=== PATIENT | male | born 1960 | race Caucasian/White ===

== ENCOUNTER → 2022-02-19 09:32 | Outpatient (CLI) | payer BC, SELFPAY | PROVIDERS: Visit Provider Nurse Practitioner Critical Care Medicine | DX: J02.9 Acute pharyngitis, unspecified (principal) | CPT/HCPCS: 87070; 87147 ==

== ENCOUNTER 2023-07-13 18:50 | Emergency (ER) | payer BC, SELFPAY ==
[2023-07-13] VITALS (21 sets, daily range): BP systolic 135–197; BP diastolic 68–129; PULSE 69–84; RESP 12–26; TEMP 35.9; O2SAT 95–99; BMI 24.7
--- NOTE | 2023-07-13 18:57 | DI.RAD.S_ITS ---
PROCEDURE: XR CHEST 1V INDICATIONS: chest pain TECHNIQUE: One view of the chest was acquired. COMPARISON: None. FINDINGS: Surgical changes and devices: None. Lungs and pleura: Lungs are clear. No pleural effusions or pneumothorax. Mediastinum: Mediastinal contours appear normal. Heart size is normal. Bones and chest wall: No suspicious bony lesions. Overlying soft tissues appear unremarkable. IMPRESSION: No acute cardiopulmonary process. Dictated by: Brice Nettles M.D. on 07/13/2023 at 19:19 Approved by: Brice Nettles M.D. on 07/13/2023 at 19:19
[2023-07-13 19:26] LABS: Add Manual Diff / Slide Review NO; Basophils Absolute Auto 100 /uL (0-100); Basophils Percent Auto 1.2 % (0-2); Eosinophils Absolute Auto 200 /uL (0-450); Eosinophils Percent Auto 3.5 % (2-4); Hematocrit 44.6 % (41-53); Hemoglobin 15.2 g/dL (13.5-17.5); Lymphocytes Absolute Auto 2100 /uL (1100-4500); Lymphocytes Percent Auto 33.2 % (25-40); Mean Corpuscular HGB Conc 34.1 % (30-36); Mean Corpuscular Volume 88.1 fL (80-100); Monocytes Absolute Auto 700 /uL (0-900); Monocytes Percent Auto 10.6 % (3-14); Neutrophils Absolute Auto 3300 /uL (1500-7000); Neutrophils Percent Auto 51.5 % (50-75); Platelet Count 254 X10^3/uL (150-400); Red Blood Cell Count 5.07 X10^6/uL (4.5-5.9); Red Cell Distribution Width 13.7 % (11.6-14.8); White Blood Cell Count 6.3 X10^3/uL (4.5-11.0)
[2023-07-13 19:46] LABS: Prothrombin Time 11.5 SECONDS (10.1-12.7)
[2023-07-13 19:49] LABS: PTT Partial Thromboplastin Tim 28 SECONDS (26-36)
[2023-07-13 19:51] LABS: Alanine Aminotransferase 18 IU/L (<50); Albumin 4.5 g/dL (3.5-5.0); Albumin Globulin Ratio 1.5 (1.0-2.8); Alkaline Phosphatase 67 U/L (38-126); Aspartate Aminotransferase 28 IU/L (17-59); BUN Creatinine Ratio 15.2 (6-22); Bilirubin Total 0.6 mg/dL (0.2-1.3); Blood Urea Nitrogen 14 mg/dL (9-20); Carbon Dioxide 26 mmol/L (22-32); Chloride 105 mmol/L (98-107); Creatine Kinase 85 U/L (55-170); Estimated Glomerular Filt Rate > 60 mL/min (>60); Globulin 3.1 g/dL (1.7-4.1); Glucose 111 mg/dL (80-110); HEMOLYSIS 35 (0-50); Lipase 176 U/L (23-300); Magnesium 1.9 mg/dL (1.6-2.3); Potassium 4.3 mmol/L (3.4-5.1); Sodium 139 mmol/L (137-145); Total Protein 7.6 g/dL (6.3-8.2)
[2023-07-13 20:02] LABS: Troponin I 0.014 ng/mL (0.01-0.034)
--- NOTE | 2023-07-13 20:48 | ED_ITS ---
HPI - Chest Pain General Chief Complaint: Chest Pain Stated Complaint: Thinks heart attack Time Seen by Provider: 07/13/23 19:05 Source: patient Mode of arrival: Family Vehicle Limitations: no limitations History of Present Illness HPI narrative: Patient is a 62-year-old male. A known history of coronary artery disease. He had a heart attack in 2016. He states that it was a ?LAD lesion? he had a stent placed. Has not had any issues since that time. He takes propranolol for headaches. He is on a statin and also prasugrel. At approximately 0630 this evening he stated that he had a fairly sudden onset of chest discomfort. It was both sides of his chest. He did have some tightness in his neck. No arm discomfort. No shortness of breath. Lasted approximately 1 hour and then resolved. He has been asymptomatic since that time. He states this does feel different than his prior heart attack. He is no lower extremity swelling. Has not tried anything for his symptoms prior to arrival. Related Data Home Medications Medication Instructions Recorded Confirmed pantoprazole 40 mg tablet,delayed 40 mg PO QAM 07/14/23 07/14/23 release prasugrel 10 mg tablet 10 mg PO DAILY 07/14/23 07/14/23 propranolol 60 mg capsule,24 60 mg PO DAILY 07/14/23 07/14/23 hr,extended release rosuvastatin 10 mg tablet 10 mg PO DAILY 07/14/23 07/14/23 Allergies Allergy/AdvReac Type Severity Reaction Status Date / Time Penicillins AdvReac Verified 07/13/23 18:57 Review of Systems Constitutional Constitutional: Reports system reviewed and no additional complaints, except as documented Cardiovascular Cardiovascular: Reports system reviewed and no additional complaints, except as documented Respiratory Respiratory: Reports system reviewed and no additional complaints, except as documented Gastrointestinal Gastrointestinal: Reports system reviewed and no additional complaints, except as documented Musculoskeletal Musculoskeletal: Reports system reviewed and no additional complaints, except as documented Hematologic/Lymphatic On Anticoagulants: No Patient History Social History Smoking Status: Never smoker Smoking Status: Never smoker Substance Use Type: does not use Exam Initial Vital Signs Initial Vital Signs: Vital Signs Temperature 96.7 F L 07/13/23 18:54 Pulse Rate 82 07/13/23 18:54 Respiratory Rate 16 07/13/23 18:54 Blood Pressure 197/129 H 07/13/23 18:54 Pulse Oximetry 99 07/13/23 18:54 Oxygen Delivery Method Room Air 07/13/23 18:54 Const General: cooperative, comfortable and No ill appearing HENAR Head: normal to inspection and normocephalic Resp Effort & Inspection: normal respiratory effort Auscultation: clear to auscultation bilaterally Cardio Rate: regular rate Rhythm: regular rhythm GI Inspection: normal to inspection and non-distended Skin General: no rashes or lesions noted Neuro General: patient alert, patient awake and moves all extremities Extrem General: No edema Course Orders Ordered: ED Orders 07/13/23 18:57 XR chest 1V Stat EKG-12 Lead Stat 07/13/23 19:15 Complete Blood Count AUTO DIFF Stat Comprehensive Metabolic Panel Stat Lipase Stat Magnesium Stat PTT Partial Thromboplastin Tai Stat Prothrombin Time INR Stat Troponin & CK Cardiac Panel Stat 07/13/23 22:15 Troponin & CK Cardiac Panel Stat 07/14/23 05:00 Hemoglobin and Hematocrit DAILY Platelet Count DAILY 07/14/23 05:30 PTT Partial Thromboplastin Tai Q6H 07/14/23 11:30 PTT Partial Thromboplastin Tai Q6H 07/14/23 17:30 PTT Partial Thromboplastin Tai Q6H 07/15/23 05:00 Hemoglobin and Hematocrit DAILY Platelet Count DAILY Heparin Sodium/Dextrose (Heparin Drip) 25,000 unit in 500 mls @ 18.724 mls/hr IV CONT RHIANNON; Protocol Last Admin: 07/13/23 23:27 Dose: 12 units/kg/hr, 18.724 mls/hr Documented By: JUSTYN Co-signed By: LAURENT Discontinued Medications Aspirin (Aspirin 81 Mg Chew Tab) 324 mg PO NOW ONE Stop: 07/13/23 18:58 Last Admin: 07/13/23 23:22 Dose: 324 mg Documented By: JUSTYN Heparin Sodium (Porcine) (Heparin 5,000 Unit/Ml Vial) 4,000 unit IV NOW ONE Stop: 07/13/23 23:18 Last Admin: 07/13/23 23:22 Dose: 4,000 unit Documented By: JUSTNY Metoprolol Succinate (Metoprolol Er 25 Mg Tablet) 25 mg PO NOW ONE Stop: 07/14/23 03:06 Last Admin: 07/14/23 03:13 Dose: 25 mg Documented By: MARGARITA Metoprolol Tartrate (Metoprolol Ir 25 Mg Tablet) 25 mg PO NOW ONE Stop: 07/14/23 01:07 Last Admin: 07/14/23 01:12 Dose: 25 mg Documented By: LAURENT Vital Signs Vital signs: Vital Signs - 8 hr 07/13/23 19:30 07/13/23 19:30 07/13/23 19:46 Pulse Rate 74 Respiratory Rate Blood Pressure 182/91 H 157/94 H Pulse Oximetry 98 Oxygen Delivery Method 07/13/23 19:46 07/13/23 20:00 07/13/23 20:00 Pulse Rate 76 82 Respiratory Rate 16 26 H Blood Pressure 172/70 H Pulse Oximetry 98 96 Oxygen Delivery Method 07/13/23 20:16 07/13/23 20:16 07/13/23 20:30 Pulse Rate 78 Respiratory Rate 15 Blood Pressure 162/85 H 138/74 Pulse Oximetry 97 Oxygen Delivery Method 07/13/23 20:30 07/13/23 20:45 07/13/23 20:45 Pulse Rate 77 76 Respiratory Rate 12 23 Blood Pressure 153/84 H Pulse Oximetry 96 97 Oxygen Delivery Method 07/13/23 21:00 07/13/23 21:00 07/13/23 21:16 Pulse Rate 74 77 Respiratory Rate 19 15 Blood Pressure 137/78 Pulse Oximetry 96 98 Oxygen Delivery Method 07/13/23 21:16 07/13/23 21:30 07/13/23 21:30 Pulse Rate 69 Respiratory Rate 16 Blood Pressure 149/92 H 136/81 Pulse Oximetry 96 Oxygen Delivery Method 07/13/23 21:45 07/13/23 21:45 07/13/23 22:00 Pulse Rate 72 Respiratory Rate 16 Blood Pressure 153/75 H 146/70 H Pulse Oximetry 97 Oxygen Delivery Method 07/13/23 22:00 07/13/23 22:16 07/13/23 22:16 Pulse Rate 77 82 Respiratory Rate 16 Blood Pressure 154/80 H Pulse Oximetry 96 96 Oxygen Delivery Method 07/13/23 22:30 07/13/23 22:30 07/13/23 22:45 Pulse Rate 74 Respiratory Rate 18 Blood Pressure 135/75 150/78 H Pulse Oximetry 95 Oxygen Delivery Method 07/13/23 22:45 07/13/23 23:00 07/13/23 23:00 Pulse Rate 75 81 Respiratory Rate 18 18 Blood Pressure 146/90 H Pulse Oximetry 96 97 Oxygen Delivery Method 07/13/23 23:15 07/13/23 23:15 07/13/23 23:30 Pulse Rate 74 84 Respiratory Rate 19 17 Blood Pressure 141/68 H Pulse Oximetry 97 98 Oxygen Delivery Method 07/13/23 23:45 07/13/23 23:45 07/14/23 00:00 Pulse Rate 78 Respiratory Rate 15 Blood Pressure 142/89 H 203/101 H Pulse Oximetry 98 Oxygen Delivery Method 07/14/23 00:00 07/14/23 00:15 07/14/23 00:15 Pulse Rate 80 83 Respiratory Rate 16 11 L Blood Pressure 193/91 H Pulse Oximetry 99 98 Oxygen Delivery Method 07/14/23 00:30 07/14/23 00:30 07/14/23 00:45 Pulse Rate 83 82 Respiratory Rate 14 13 Blood Pressure 175/93 H Pulse Oximetry 98 97 Oxygen Delivery Method 07/14/23 00:45 07/14/23 01:00 07/14/23 01:00 Pulse Rate 87 Respiratory Rate 10 L Blood Pressure 174/90 H 198/102 H Pulse Oximetry 98 Oxygen Delivery Method Room Air 07/14/23 01:15 07/14/23 01:15 07/14/23 01:30 Pulse Rate 86 Respiratory Rate 12 Blood Pressure 187/95 H 166/92 H Pulse Oximetry 97 Oxygen Delivery Method 07/14/23 01:30 07/14/23 01:45 07/14/23 01:45 Pulse Rate 81 83 Respiratory Rate 15 18 Blood Pressure 148/77 H Pulse Oximetry 96 96 Oxygen Delivery Method 07/14/23 02:00 07/14/23 02:00 07/14/23 02:15 Pulse Rate 77 79 Respiratory Rate 17 16 Blood Pressure 144/70 H Pulse Oximetry 96 97 Oxygen Delivery Method 07/14/23 02:15 07/14/23 02:30 07/14/23 02:45 Pulse Rate 85 92 H Respiratory Rate 23 19 Blood Pressure 155/77 H Pulse Oximetry 96 97 Oxygen Delivery Method 07/14/23 02:46 07/14/23 03:00 07/14/23 03:02 Pulse Rate 85 83 85 Respiratory Rate 17 21 19 Blood Pressure Pulse Oximetry 98 97 99 Oxygen Delivery Method Room Air 07/14/23 03:02 07/14/23 03:04 07/14/23 03:04 Pulse Rate 88 Respiratory Rate 20 Blood Pressure 199/98 H 188/97 H Pulse Oximetry 97 Oxygen Delivery Method 07/14/23 03:13 Pulse Rate 81 Respiratory Rate Blood Pressure 188/97 H Pulse Oximetry Oxygen Delivery Method MDM - Chest Pain Lab Data Attestation: I reviewed the patient's lab results. 07/13/23 19:15 07/13/23 19:15 Labs: Lab Results 07/13/23 07/13/23 07/13/23 Range/Units 19:15 19:15 19:15 WBC 6.3 (4.5-11.0) X10^3/uL RBC 5.07 (4.5-5.9) X10^6/uL Hgb 15.2 (13.5-17.5) g/dL Hct 44.6 (41-53) % MCV 88.1 (80-100) fL MCH 30.0 (26-34) PG MCHC 34.1 (30-36) % RDW 13.7 (11.6-14.8) % Plt Count 254 (150-400) X10^3/uL Neut % (Auto) 51.5 (50-75) % Lymph % (Auto) 33.2 (25-40) % [place] % (Auto) 10.6 (3-14) % Eos % (Auto) 3.5 (2-4) % Baso % (Auto) 1.2 (0-2) % Neut # (Auto) 3300 (5372-2973) /uL Lymph # (Auto) 2100 (1507-5288) /uL [place] # (Auto) 700 (0-900) /uL Eos # (Auto) 200 (0-450) /uL Baso # (Auto) 100 (0-100) /uL PT 11.5 (10.1-12.7) SECONDS INR 1.0 (0.9-1.3) APTT 28 (26-36) SECONDS Sodium 139 (137-145) mmol/L Potassium 4.3 (3.4-5.1) mmol/L Chloride 105 (98-107) mmol/L Carbon Dioxide 26 (22-32) mmol/L BUN 14 (9-20) mg/dL Creatinine 0.92 (0.66-1.25) mg/dL Estimated GFR > 60 (>60) mL/min BUN/Creatinine Ratio 15.2 (6-22) Glucose 111 H (80-110) mg/dL Calcium 9.0 (8.4-10.2) mg/dL Magnesium 1.9 (1.6-2.3) mg/dL Total Bilirubin 0.6 (0.2-1.3) mg/dL AST 28 (17-59) IU/L ALT 18 (<50) IU/L Alkaline Phosphatase 67 (38-126) U/L Total Creatine Kinase 85 (55-170) U/L Troponin I 0.014 (0.01-0.034) ng/mL Total Protein 7.6 (6.3-8.2) g/dL Albumin 4.5 (3.5-5.0) g/dL Globulin 3.1 (1.7-4.1) g/dL Albumin/Globulin Ratio 1.5 (1.0-2.8) Lipase 176 (23-300) U/L 07/13/23 Range/Units 22:15 WBC (4.5-11.0) X10^3/uL RBC (4.5-5.9) X10^6/uL Hgb (13.5-17.5) g/dL Hct (41-53) % MCV (80-100) fL MCH (26-34) PG MCHC (30-36) % RDW (11.6-14.8) % Plt Count (150-400) X10^3/uL Neut % (Auto) (50-75) % Lymph % (Auto) (25-40) % [place] % (Auto) (3-14) % Eos % (Auto) (2-4) % Baso % (Auto) (0-2) % Neut # (Auto) (6755-8607) /uL Lymph # (Auto) (5319-4290) /uL [place] # (Auto) (0-900) /uL Eos # (Auto) (0-450) /uL Baso # (Auto) (0-100) /uL PT (10.1-12.7) SECONDS INR (0.9-1.3) APTT (26-36) SECONDS Sodium (137-145) mmol/L Potassium (3.4-5.1) mmol/L Chloride (98-107) mmol/L Carbon Dioxide (22-32) mmol/L BUN (9-20) mg/dL Creatinine (0.66-1.25) mg/dL Estimated GFR (>60) mL/min BUN/Creatinine Ratio (6-22) Glucose (80-110) mg/dL Calcium (8.4-10.2) mg/dL Magnesium (1.6-2.3) mg/dL Total Bilirubin (0.2-1.3) mg/dL AST (17-59) IU/L ALT (<50) IU/L Alkaline Phosphatase (38-126) U/L Total Creatine Kinase 227 H (55-170) U/L Troponin I 2.680 H* (0.01-0.034) ng/mL Total Protein (6.3-8.2) g/dL Albumin (3.5-5.0) g/dL Globulin (1.7-4.1) g/dL Albumin/Globulin Ratio (1.0-2.8) Lipase (23-300) U/L Imaging Data Chest x-ray: Radiologist's Impression: PROCEDURE:? XR CHEST 1V ? INDICATIONS:? chest pain ? TECHNIQUE:? One view of the chest was acquired.? ? COMPARISON:? None. ? FINDINGS:? ? Surgical changes and devices:? None.? ? Lungs and pleura:? Lungs are clear.? No pleural effusions or pneumothorax.? ? Mediastinum:? Mediastinal contours appear normal.? Heart size is normal.? ? Bones and chest wall:? No suspicious bony lesions.? Overlying soft tissues appear unremarkable.? ? IMPRESSION:? No acute cardiopulmonary process. ECG Data Attestation: I personally reviewed and interpreted this ECG as follows: Interpretation: Sinus rhythm Ventricular rate is 76 Occasional PVCs Normal axis QRS [address] depressions V4 and V5 No ST elevations MDM Narrative Medical decision making narrative: Patient has been asymptomatic since being here in the ER. He has had episodes of bigeminy and then other episodes of sinus rhythm with frequent PVCs. This does not seem to be associated with any discomfort. He has ST depressions in V4 and V5. No prior EKGs are available. His chest x-ray is unremarkable. Initial troponin is negative. Repeat troponin is now positive. He was given aspirin. Started on heparin. He was informed of the lab test and the concern cardiac etiology of his chest discomfort. He expressed understanding of this. He did develop hypertension. He does take propranolol at night on a regular basis for migraine headaches. We will hold on giving him this for now and actually give him a dose of metoprolol because of his high blood pressure. I discuss the case with Dr. Lozano hospitalist at [facility] who accepts the patient for transport. Patient understands the need for transport to a facility that has cardiovascular capability. Patient is stable for transport. Patient was given 25 mg of p.o. immediate release metoprolol. This did improve his blood pressure however it then started to increase again. He was then given 25 mg of extended release metoprolol prior to transport. Discharge Plan Departure Patient Disposition: [facility] Clinical Impression: Non-ST elevation MO (NSTEMI), Hypertension Prescriptions: No Action propranolol 60 mg capsule,extended release 24 hr 60 mg PO DAILY pantoprazole 40 mg tablet,delayed release (DR/EC) 40 mg PO QAM rosuvastatin 10 mg tablet 10 mg PO DAILY prasugrel 10 mg tablet 10 mg PO DAILY Referrals: Miscellaneous,Doctor, MD [Primary Care Provider] -
[2023-07-13 22:34] LABS: Creatine Kinase 227 U/L (55-170)
[2023-07-13] MEDS: ASPIRIN 81 MG CHEW TAB 324 MG PO (23:22)
[2023-07-13] MEDS: HEPARIN 5,000 UNIT/ML VIAL 4000 UNIT IV (23:22)
[2023-07-13] MEDS: HEPARIN DRIP 25,000 UNIT/500 ML IV.SOLN 18.724 UNIT IV (23:27)
[2023-07-14] VITALS (17 sets, daily range): BP systolic 144–203; BP diastolic 70–102; PULSE 77–92; RESP 10–23; O2SAT 96–99
[2023-07-14] MEDS: METOPROLOL IR 25 MG TABLET PO (01:12)
[2023-07-14] MEDS: METOPROLOL ER 25 MG TABLET PO (03:13)
== END 2023-07-14 03:20 | disposition short-term general hospital (02) ==
PROVIDERS: Emergency Provider Emergency Medicine
DX: I21.4 Non-ST elevation (NSTEMI) myocardial infarction (principal); I10 Essential (primary) hypertension
CPT/HCPCS: 36415; 71045; 80053; 82550; 83690; 83735; 84484; 85025; 85610; 85730; 93005; 96374; 99284; 99285; J1644